=== PATIENT | female | born 1935 | race Two or more races ===

== ENCOUNTER 2020-11-13 12:45 | Inpatient (IN) | payer MEDICARE, OTHER ==
[~2020-11-13] VITALS: Ht 160 cm; Wt 46.3 kg
[~2020-11-13 12:45] MED LIST: ALOG25TA PO; AMLO5TAB4 PO; LEVO750T21 PO; METF-442 PO; WARF-58 PO
--- NOTE | 2020-11-13 12:55 | NUR ---
The patient is [id number] and daughter, from home, c/o severe headache started around 10am. Rates pain 9/10. The patient is alert and oriented x3 with epsidoes of forgetfullness. Denies SOB. Respiration regular and unlabored. Attached to the monitor. Warm blanket provided for comfort. Will continue to monitor the patient.
[2020-11-13] MEDS ORDERED: IV NS 0.9% 1,000 ML BAG IV ONE (13:00)
[2020-11-13 13:15] LABS: BASOPHILS % (AUTO) 0.7 % (0.0-2.0); EOSINOPHILS % (AUTO) 1.9 % (0.0-6.0); HEMATOCRIT 24 % (33-45); HEMOGLOBIN 8.1 g/dL (11.5-14.8); LYMPHOCYTES # (AUTO) 1.1 K/uL (0.8-4.8); LYMPHOCYTES % (AUTO) 18.2 % (20.0-44.0); MEAN CORPUSCULAR HGB CONC 33 g/dl (31.0-36.0); MEAN CORPUSCULAR VOLUME 95 fL (82-100); MONOCYTES # (AUTO) 0.3 K/uL (0.1-1.30); NEUTROPHILS # (AUTO) 4.4 K/uL (1.8-8.9); NEUTROPHILS % (AUTO) 74.2 % (43.0-81.0); PLATELET COUNT (AUTO) 127 K/uL (150-450); RED BLOOD CELL COUNT(AUTO) 2.56 MIL/uL (4.0-5.2)
[2020-11-13 13:25] LABS: ALANINE AMINOTRANSFERASE 16 U/L (12-78); ALBUMIN 2.4 g/dL (3.4-5.0); ALKALINE PHOSPHATASE 68 U/L (46-116); ASPARTATE AMINOTRANSFERASE 15 U/L (15-37); BILIRUBIN,DIRECT 0.1 mg/dL (0.0-0.2); BILIRUBIN,TOTAL 0.3 mg/dL (0.2-1.0); CALCIUM, SERUM 8.1 mg/dL (8.5-10.1); CARBON DIOXIDE 24 mmol/L (21-32); CHLORIDE 111 mmol/L (98-107); CREATININE 2.4 mg/dL (0.6-1.3); GLUCOSE 175 mg/dL (74-106); POTASSIUM 3.8 mmol/L (3.5-5.1); SODIUM SERUM 143 mmol/L (136-145); TOTAL PROTEIN, SERUM 5.3 g/dL (6.4-8.2); UREA NITROGEN, BLOOD 30 mg/dL (7-18)
--- NOTE | 2020-11-13 13:32 | NUR ---
THE PATIENT IS TAKEN TO CT IN STABLE CONDITON.
--- NOTE | 2020-11-13 13:42 | NUR ---
THE PATIENT IS BACK FROM CT IN STABLE CONDITION.
[2020-11-13] MEDS ORDERED: DOCU250C14 PO (14:14)
[2020-11-13] MEDS ORDERED: ROSU40TA23 PO (14:14)
[2020-11-13] MEDS ORDERED: HYDR100T27 PO (14:14)
[2020-11-13] MEDS ORDERED: AMLO-61 PO (14:14)
[2020-11-13] MEDS ORDERED: CLON0.1T PO (14:14)
[2020-11-13] MEDS ORDERED: PANT40TA49 PO (14:14)
[2020-11-13] MEDS ORDERED: CARV6.252 PO (14:14)
--- NOTE | 2020-11-13 14:25 | NUR ---
CODE STROKE IS CALLED
--- NOTE | 2020-11-13 14:28 | NUR ---
THE PATIENT IS TAKEN TO CT
--- NOTE | 2020-11-13 14:47 | NUR ---
THE PATIENT IS BEING ASSESSED BY NEUROLOGIST
--- NOTE | 2020-11-13 15:00 | NUR ---
MOVE SHEET SUBMITTED AND CALLED FOR TELE BED.
--- NOTE | 2020-11-13 15:01 | NUR ---
[facility] CALLED ENVIRONMENTAL PROGRAMS SPECIALIST PAGED.
--- NOTE | 2020-11-13 15:12 | NUR ---
DR SILVA IS MADE AWARE THAT THE PATIENT`S BLOOD PRESSURE IS 197/86, HR 90 AND THE PATIENT C/O HEADACHE 5/10. ALSO, MADE AWARE THAT THE PATIENT DID NOT TAKE HER MORNING BLOOD PRESSURE MEDICATION PER DAUGTER.
[2020-11-13] MEDS ORDERED: ASPIRIN 325 MG TABLET ONE (15:30)
[2020-11-13] MEDS ORDERED: ACETAMINOPHEN ES 500 MG TABLET PO ONE (15:30)
[2020-11-13] MEDS ORDERED: ASPIRIN 325 MG TABLET PO ONE (15:30)
[2020-11-13] MEDS ORDERED: ACETAMINOPHEN ES 500 MG TABLET ONE (15:30)
[2020-11-13] MEDS ORDERED: ACETAMINOPHEN 325 MG TABLET PO PRN (16:00)
[2020-11-13] MEDS: IV NS 0.9% 1,000 ML IV SCH (16:00)
[2020-11-13] MEDS ORDERED: MAGNESIUM HYDROXIDE 30 ML UDC PO PRN (16:00)
[2020-11-13] MEDS ORDERED: ZOLPIDEM TARTRATE 5 MG TABLET PO PRN (16:00)
[2020-11-13] MEDS ORDERED: ONDANSETRON HCL/PF 4 MG/2 ML VIAL IVP PRN (16:00)
[2020-11-13] MEDS ORDERED: MAG HYDROX/AL HYDROX/SIMETH 30 ML UDC PO PRN (16:00)
[2020-11-13] MEDS ORDERED: Z GUARD REMEDY 2 OZ OINT TP PRN (16:00)
--- NOTE | 2020-11-13 16:22 | NUR ---
ROOM ASSIGNMENT: [facility]2 T
[2020-11-13 16:27] LABS: OCCULT BLOOD STOOL NEGATIVE (NEGATIVE)
[2020-11-13] MEDS ORDERED: DOCUSATE SODIUM 250 MG CAPSULE PO PRN (16:30)
--- NOTE | 2020-11-13 16:32 | NUR ---
report given to nurse Matos
--- NOTE | 2020-11-13 16:32 | NUR ---
the patient in stable condition and taken to assigned room per policy
--- NOTE | 2020-11-13 16:37 | NUR ---
TEXTED DR. HANCOCK FOR MRI APPROVAL.
--- NOTE | 2020-11-13 16:41 | NUR ---
MRI APPROVED/ DEPUTY BAILIFFSUMAYA BARTH NOTIFIED
--- NOTE | 2020-11-13 16:44 | NUR ---
RN NOTES PATIENT TRANSFERRED TO UNIT IN ROOM 308-2 VIA FERNANDAREUGENIE, ACCOMPANIED BY 2 ER NURSES.
[2020-11-13] MEDS: BLOOD SUGAR DIAGNOSTIC 1 EACH STRIP IN SCH (17:25)
[2020-11-13] MEDS ORDERED: BLOOD SUGAR DIAGNOSTIC 1 EACH STRIP IN SCH (17:30)
[2020-11-13] MEDS: CARVEDILOL 6.25 MG TABLET PO SCH (17:48)
[2020-11-13] MEDS: ATORVASTATIN 40 MG TABLET PO SCH (18:36)
--- NOTE | 2020-11-13 18:45 | NUR ---
RN NOTES ADMITTED THIS 85YO FEMALE FROM THE ER W/ CC OF WEAKNESS FOLLOWING SWEEPING ACTIVITY AT HOME; ADMITTING DX OF ACUTE CVA PER ER MD. PATIENT WAS SEEN IN BED, RESTING, VERBALLY RESPONSIVE, A/O X2-3, BURUNDIAN-SPEAKING PATIENT ACCOMPANIED BY FAMILY AND LOOM DOFFER AT BEDSIDE. BREATHING EVEN AND UNLABORED ON ROOM AIR. PATIENT ABLE TO RESPOND TO QUESTIONS AND ABLE TO SWALLOW MEDICATION W/ WATER W/O NAUSEA/VOMITING NOR COUGHING. IV LINE NOTED ON LFA #20 W/ IVF OF NS AT 100CC/HR INFUSING WELL. NOTED W/ 2 HEARING AIDS, RIGHT HEARING AID IN PLACE AND LEFT HEARING AID AT BEDSIDE. MILD WEAKNESS NOTED ON R/L UPPER/LOWER EXTREMITIES, PROVIDED ASSISTANCE NEEDED. ABLE TO URINATE VIA BEDPAN. SAFETY MEASURES IN PLACE. CALL LIGHT PLACED W/IN REACH. PATIENT TAKEN TO MRI PROCEDURE BY 2 RAD TECHS VIA (In)Touch Network AT THIS TIME. WILL ENDORSE TO AIR TRANSPORT PROFESSIONALS RN FOR LUIS.
--- NOTE | 2020-11-13 20:00 | NUR ---
CAR CONSTRUCTION SUPERINTENDENT OPENING NOTE RECEIVED PT AWAKE IN BED. A/O X2-3, MOHAWK-SPEAKING. PT IS STABLE ON ROOM AIR. NO SOB OR S/S OF RESPIRATORY DISTRESS NOTED. PT IS ON EXTERNAL FOOD SERVICE SALES REPRESENTATIVES READING CONTROLLED AFIB 81 BPM. PT HAS NO C/O PAIN OR DISCOMFORT AT THIS TIME. IV ACCESS NOTED IN LFA #20, INFUSING NS AT 100 ML/HR, INTACT AND PATENT. SAFETY MEASURES MAINTAINED. BED IN LOWEST LOCKED POSITION, HOB ELEVATED, SIDE RAILS UP X2. CALL LIGHT AND TABLE WITHIN REACH. WILL CONTINUE WITH PLAN OF CARE.
[2020-11-13 20:08] VITALS: BP 158/81
--- NOTE | 2020-11-13 20:15 | NUR ---
MUNIR (OTHER SALES SUPPORT WORKER) [phone].
--- NOTE | 2020-11-13 20:32 | NUR ---
MRA HEAD/NECK NOT DONE, PATIENT UNABLE TO HOLD STILL FOR THE EXAM, PER DIRECTOR OF CATEGORY MANAGEMENT TAB
--- NOTE | 2020-11-13 21:31 | NUR ---
RACECOURSE BARRIER ATTENDANT PAIN PT C/O MILD HEADACHE, RATED 3/10 ON 0-10 PAIN SCALE. PER PT REQUEST, ADMINISTERED TYLENOL 650 MG PO Q6H PRN FOR PAIN. WILL CONTINUE TO MONITOR.
[2020-11-13] MEDS ORDERED: ATORVASTATIN 40 MG TABLET PO SCH (22:00)
--- NOTE | 2020-11-13 23:12 | NUR ---
RECEIVED RESULTS OF MRI BRAIN FROM DR. JERRY FERRER FROM RADIOLOGY. REPORTED 7.6 CM ACUTE STROKE IN RIGHT OCCIPITAL LOBE, RIGHT TEMPORAL, RIGHT THALAMUS, NEGATIVE FOR HEMORRHAGE. RELAYED RESULTS TO MAYELIN ALMEIDA NP. INFORMED HER THAT NEURO CONSULT ORDERED, PT/OT/ST EVALS ORDERED, ASA GIVEN IN ER. NO NEW ORDERS AT THIS TIME.
[2020-11-14 00:06] VITALS: BP 174/82
[2020-11-14] MEDS: BLOOD SUGAR DIAGNOSTIC 1 EACH STRIP IN SCH ×4 (00:24→17:34)
[2020-11-14] MEDS: IV NS 0.9% 1,000 ML IV SCH (02:09)
[2020-11-14 03:58] VITALS: BP 162/67
[2020-11-14 06:04] LABS: BASOPHILS # (AUTO) 0.1 K/uL (0.0-0.2); BASOPHILS % (AUTO) 0.9 % (0.0-2.0); EOSINOPHILS % (AUTO) 2.3 % (0.0-6.0); HEMATOCRIT 24 % (33-45); LYMPHOCYTES # (AUTO) 1.5 K/uL (0.8-4.8); LYMPHOCYTES % (AUTO) 22.2 % (20.0-44.0); MEAN CORPUSCULAR HGB CONC 33 g/dl (31.0-36.0); MEAN CORPUSCULAR VOLUME 96 fL (82-100); MONOCYTES # (AUTO) 0.5 K/uL (0.1-1.30); MONOCYTES % (AUTO) 6.9 % (2.0-12.0); NEUTROPHILS # (AUTO) 4.4 K/uL (1.8-8.9); NEUTROPHILS % (AUTO) 67.7 % (43.0-81.0); PLATELET COUNT (AUTO) 125 K/uL (150-450); RED BLOOD CELL COUNT(AUTO) 2.54 MIL/uL (4.0-5.2); WHITE BLOOD COUNT (AUTO) 6.6 K/uL (4.3-11.0)
[2020-11-14 06:17] LABS: CALCIUM, SERUM 7.9 mg/dL (8.5-10.1); CARBON DIOXIDE 22 mmol/L (21-32); CHLORIDE 113 mmol/L (98-107); CREATININE 2.2 mg/dL (0.6-1.3); GLUCOSE 101 mg/dL (74-106); MAGNESIUM 1.7 mg/dL (1.8-2.4); PHOSPHORUS 3.9 mg/dL (2.5-4.9); POTASSIUM 3.7 mmol/L (3.5-5.1); SODIUM SERUM 144 mmol/L (136-145); UREA NITROGEN, BLOOD 27 mg/dL (7-18)
[2020-11-14 06:32] LABS: CHOLESTEROL 154 mg/dL (<200); FERRITIN 157 ng/mL (8-388); HDL CHOLESTEROL 39 mg/dL (40-60); LDL 86 mg/dL (0-99); TRIGLYCERIDES 150 mg/dL (30-150)
--- NOTE | 2020-11-14 06:40 | NUR ---
EXTRACTOR OPERATOR HELPER CLOSING NOTE PT IS AWAKE IN BED. A/O X2-3, SOLOMON ISLANDER-SPEAKING. PT IS STABLE ON ROOM AIR. NO SOB OR S/S OF RESPIRATORY DISTRESS NOTED. PT IS ON EXTERNAL RECEPTION CLERK READING CONTROLLED AFIB 71 BPM. PT HAS NO C/O PAIN OR DISCOMFORT AT THIS TIME. IV ACCESS IS INTACT, PATENT, AND FLUSHING WELL. ALL NEEDS HAVE BEEN MET. PAIN MANAGEMENT ADMINISTERED PER ORDER. PT REPOSITIONED Q2H AND PRN. SAFETY AND ASPIRATION PRECAUTIONS MAINTAINED AT ALL TIMES. BED IN LOWEST LOCKED POSITION, HOB ELEVATED, SIDE RAILS UP X2. CALL LIGHT AND TABLE WITHIN REACH. WILL ENDORSE TO ONCOMING NURSE FOR LUIS.
[2020-11-14] MEDS: PANTOPRAZOLE 40 MG TABLET.DR PO SCH (07:19)
[2020-11-14 07:20] LABS: IRON, SERUM 25 ug/dl (50-175); TOTAL IRON BINDING CAPACITY 140 ug/dl (250-450)
--- NOTE | 2020-11-14 07:27 | NUR ---
DEBRIDGING MACHINE OPERATOR OPENING NOTES RECEIVED PT AWAKE IN BED IN NO ACUTE SIGNS OF DISTRESS. HOB ELEVATED. GRANDDAUGHTER AT BEDSIDE. A/O X2-3, PALAUAN-SPEAKING, UPPER M[place]ONI WITH HEARING AID IN PLACE TO RIGHT EAR AT THIS TIME, DENIES PAIN OR ANY DISCOMFORTS AT THIS TIME. ON ROOM AIR, BREATHING EVEN AND UNLABORED. ON EXTERNAL PHARMACY CARE COORDINATOR WITH CURRENT READING OF A-FIB CONTROLLED, HR ON THE 80'S, NO C/O CARDIAC DISTRESS VOICED. IV ACCESS LFA #20 INTACT AND PATENT, INFUSING NS AT 100 ML/HR, NO S/S OF INFILTRATION NOTED. SAFETY MEASURES MAINTAINED: BED IN LOWEST LOCKED POSITION, SIDE RAILS UP X2. CALL LIGHT AND BEDSIDE TABLE WITHIN REACH. WILL CONTINUE WITH PLAN OF CARE.
[2020-11-14 08:00] VITALS: BP 156/84
[2020-11-14] MEDS ORDERED: IV NS 0.9% 1,000 ML IV PRN (08:29)
[2020-11-14] MEDS: ASPIRIN EC 81 MG TABLET.DR PO SCH (09:12)
[2020-11-14] MEDS: CARVEDILOL 6.25 MG TABLET PO SCH ×3 (09:13→16:57)
[2020-11-14] MEDS: AMLODIPINE BESYLATE 5 MG TABLET PO SCH (09:13)
[2020-11-14] MEDS: BENAZEPRIL HCL 20 MG TABLET PO SCH (09:14)
[2020-11-14] MEDS: APIXABAN 5 MG TABLET PO SCH ×2 (09:21→16:57)
[2020-11-14] MEDS ORDERED: Magnesium 1GM/D5W 100ML PREMIX 100 ML IV SCH (09:30)
--- NOTE | 2020-11-14 11:25 | NUR ---
RN NOTES PHYSICAL EVALUATION DONE BY PT THIS A.M. PT ON CONTACT GUARD ASSIST WITH FWW. PT BECAME SLIGHTLY DIZZY AND WAS ASSISTED BACK TO BED. NO ACUTE DISTRESS NOTED. PT ASLEEP AT THIS TIME, WITH FAMILY AT BEDSIDE. WILL CONTINUE TO MONITOR.
--- NOTE | 2020-11-14 12:00 | NUR ---
RN NOTES RESULTS OF CAROTID DUPLEX RECEIVED AND PT'S BS 151 MG/DL BEFORE LUNCH. CALLED EXCHANGE AND LEFT MESSAGE. NOTE TELLER SAID DR WHEATLEY WILL CALL BACK.
--- NOTE | 2020-11-14 12:30 | NUR ---
RN NOTES RECEIVED CALL BACK FROM , INFORMED OF BS 151 AND RESULT OF US DUPLEX OF CAROTID, WITH NO NEW ORDERS. CONTINUE TO MONITOR.
[2020-11-14 16:00] VITALS: BP 136/76
[2020-11-14] MEDS: ATORVASTATIN 40 MG TABLET PO SCH (17:01)
--- NOTE | 2020-11-14 18:45 | NUR ---
DISPATCHER RADIOACTIVE WASTE DISPOSAL CLOSING NOTES PT IN BED AWAKE AND RESTING AT SEMI-FOLWER'S POSITION. FAMILY AT BEDSIDE. A/O X2-3, HAITIAN-SPEAKING, CHALKYITSIK WITH HEARING AID IN PLACE TO RIGHT EAR AT THIS TIME. TOLERATING ROOM AIR WITH NO SOB NOTED DURING THE DAY. ON EXTERNAL IMPORT/EXPORT AGENT WITH CURRENT READING OF A-FIB CONTROLLED, HR ON THE 70'S, NO C/O CARDIAC DISTRESS VOICED. IV ACCESS LFA #20 INTACT AND PATENT, NO S/S OF INFILTRATION NOTED. ALL NEEDS AND CARE ATTENDED WELL. SAFETY MEASURES MAINTAINED: BED IN LOWEST LOCKED POSITION, SIDE RAILS UP X2. CALL LIGHT AND BEDSIDE TABLE WITHIN REACH. WILL ENDORSED LUIS TO NIGHT NURSE.
--- NOTE | 2020-11-14 19:30 | NUR ---
TELERN FULLY AWAKE, FAMILY AT BEDSIDE VERY SUPPORTIVE ASSISTING PATIENTS' NEEDS. VERBALLY RESPONSIVE SPEAKING ON THEIR OWN LANGUAGE, APPEARS COMFORTABLE. NO SHORT OF BREATH, PATIENT IS ZUNI. FAMILY TRANSLATING.KEPT COMFORTABL. REMAINS AFIB CONTROLLED ON THE MONITOR.
[2020-11-14 20:00] VITALS: BP 135/60
--- NOTE | 2020-11-14 21:00 | NUR ---
TELERN SEEN AMBULATING AROUND HALLWAY WITH FFW, ACCOMPANIED BY FAMILY. LEFT SIDED WEAKNESS GETTING BETTER PER FAMILY. CONTINENT, BRP VOIDED FREELY. ASSISTED BACK TO BED. PER FAMILY PATIENT FEELS COMFORTABLE. NO COMPLAINTS MADE. STABLE OF THIS TIME.
[2020-11-15] VITALS: BP 145/66
--- NOTE | 2020-11-15 00:07 | NUR ---
TELERN BS 137. NO COVERAGE.
[2020-11-15] MEDS: BLOOD SUGAR DIAGNOSTIC 1 EACH STRIP IN SCH ×4 (00:17→23:52)
--- NOTE | 2020-11-15 02:45 | NUR ---
TELERN AWAKENED, INSISTED TO GO RESTROOM. REFUSED TO USE BSC. ASSISTED TO RESTROOM VOIDED FREELY. BACK TO BED, WAS SHORT OF BREATH ON EXERTION SATURATION WAS 100% on 2 l via nc.. STAYED WITH PATIENT FOR AWHILE. REMAINS A FIB ON THE MONITOR RATE OF 75. NEEDS CLOSER OBSERVATION.
[2020-11-15 04:00] VITALS: BP 158/85
[2020-11-15 06:10] LABS: BASOPHILS % (AUTO) 0.7 % (0.0-2.0); EOSINOPHILS % (AUTO) 2.3 % (0.0-6.0); HEMATOCRIT 26 % (33-45); HEMOGLOBIN 8.4 g/dL (11.5-14.8); LYMPHOCYTES # (AUTO) 1.3 K/uL (0.8-4.8); LYMPHOCYTES % (AUTO) 19.4 % (20.0-44.0); MEAN CORPUSCULAR HGB CONC 33 g/dl (31.0-36.0); MEAN CORPUSCULAR VOLUME 96 fL (82-100); MONOCYTES # (AUTO) 0.4 K/uL (0.1-1.30); NEUTROPHILS # (AUTO) 4.9 K/uL (1.8-8.9); NEUTROPHILS % (AUTO) 71.6 % (43.0-81.0); PLATELET COUNT (AUTO) 129 K/uL (150-450); RED BLOOD CELL COUNT(AUTO) 2.64 MIL/uL (4.0-5.2); WHITE BLOOD COUNT (AUTO) 6.8 K/uL (4.3-11.0)
[2020-11-15 06:11] LABS: CALCIUM, SERUM 8.3 mg/dL (8.5-10.1); CARBON DIOXIDE 26 mmol/L (21-32); CHLORIDE 111 mmol/L (98-107); CREATININE 2.4 mg/dL (0.6-1.3); GLUCOSE 130 mg/dL (74-106); MAGNESIUM 2.1 mg/dL (1.8-2.4); POTASSIUM 3.9 mmol/L (3.5-5.1); SODIUM SERUM 145 mmol/L (136-145); UREA NITROGEN, BLOOD 30 mg/dL (7-18)
--- NOTE | 2020-11-15 06:28 | NUR ---
TELERN SLEEPING OF THIS TIME. APPEARS COMFORTABLE. CONTINUED MONITORING
--- NOTE | 2020-11-15 07:23 | NUR ---
OMAR ROSE AT BEDSIDE. UPDATED. PATIENT ASLEEP OF THIS TIME, EASILY AWAKENED WHEN CALLED AND LIGHT TOUCH. ENDORSED TO INCOMING RN
--- NOTE | 2020-11-15 07:30 | NUR ---
PARACHUTE PACKER OPENING NOTES RECEIVED PT ASLEEP, EASILY AROUSABLE TO STIMULI, A/O X2-3. GRANDDAUGHTER AT BEDSIDE. NO SIGNS OF ACUTE DISTRESS. VIETNAMESE-SPEAKING, SOLOMON WITH HEARING AID IN PLACE TO RIGHT EAR. ON ROOM AIR, BREATHING EVEN AND UNLABORED. ON EXTERNAL SENIOR AUTOMATION ENGINEER WITH CURRENT READING OF A-FIB CONTROLLED, HR 68, NO C/O CARDIAC DISTRESS NOTED. IV ACCESS LFA #20 INTACT AND PATENT, NO S/S OF INFILTRATION NOTED. SAFETY MEASURES MAINTAINED: BED IN LOWEST LOCKED POSITION, SIDE RAILS UP X2. CALL LIGHT AND BEDSIDE TABLE WITHIN REACH. WILL CONTINUE TO MONITOR.
--- NOTE | 2020-11-15 07:30 | NUR ---
LIFE SCIENCES DIRECTOR NOTES PT IN BED, ASLEEP, EASY TO AROUSE, ALERT AND ORIENTED, NO COMPLAINT AT THIS TIME, RESPIRATIONS NORMAL, CALL LIGHT WITHIN REACH, ASSISTED TO BATHROOM NEEDED, ABLE TO AMBULATE WITH ASSISTANCE, FAMILY AT BEDSIDE, NEEDS ANTICIPATED AND ATTENDED.
--- NOTE | 2020-11-15 08:35 | NUR ---
ASSEMBLER CARDS AND ANNOUNCEMENTS NOTES PT SOUNDLY SLEEPING AT THIS TIME. FAMILY/GRANDDAUGHTER REQUESTS NOT TO WAKE HER UP AT THIS TIME.
--- NOTE | 2020-11-15 09:31 | NUR ---
SS consult requested over the weekend for CVA. SS will follow up.
[2020-11-15] MEDS: ASPIRIN EC 81 MG TABLET.DR PO SCH (09:34)
[2020-11-15] MEDS: PANTOPRAZOLE 40 MG TABLET.DR PO SCH (09:34)
[2020-11-15] MEDS: CARVEDILOL 6.25 MG TABLET PO SCH ×3 (09:37→17:49)
[2020-11-15] MEDS: AMLODIPINE BESYLATE 5 MG TABLET PO SCH (09:38)
[2020-11-15] MEDS: BENAZEPRIL HCL 20 MG TABLET PO SCH (09:38)
[2020-11-15] MEDS: APIXABAN 5 MG TABLET PO SCH ×2 (09:41→17:55)
--- NOTE | 2020-11-15 09:55 | NUR ---
RN NOTE SEEN AND EXAMINED BY . MD INFORMED FAMILY AT BEDSIDE THAT PT MAY BE DISCHARGED TODAY PENDING XRAY RESULT. FAMILY VERBALIZED UNDERSTANDING.
--- NOTE | 2020-11-15 13:46 | NUR ---
RN MS NOTES PT IN BED, RESTING, NEUROCHECKS DONE ORDERED, SEEN BY DR. HOWARD, PLAN OF CARE DISCUSSED WITH PT AND FAMILY AT BEDSIDE, VERBALIZED UNDERSTANDING, CALL LIGHT WITHIN REACH, SCHEDULED MEDS GIVEN ORDERED.
[2020-11-15] MEDS: ATORVASTATIN 40 MG TABLET PO SCH (17:49)
--- NOTE | 2020-11-15 18:44 | NUR ---
RN MS NOTES PT IN BED, AWAKE, ALERT AND ORIENTED, FAMILY AT BEDSIDE, ASSISTED TO BATHROOM NEEDED, FALL PRECAUTIONS OBSERVED, SEEN BY DR. HOWARD TODAY, PLAN FOR DISCHARGE TOMORROW, PT AND FAMILY INFORMED, PM MEDS GIVEN, PM CARE PROVIDED.
[2020-11-15 19:26] LABS: BILIRUBIN,URINE NEGATIVE (NEGATIVE); COLOR,URINE YELLOW (YELLOW); LEUKOCYTE ESTERASE ,URINE NEGATIVE (NEGATIVE); NITRITE, URINE NEGATIVE (NEGATIVE); PROTEIN,URINE >=300 mg/dl (NEGATIVE); UGLUCOSE NEGATIVE (NEGATIVE); UROBILINOGEN,URINE 0.2 EU/dL (0.2)
[2020-11-15 19:41] LABS: CREATININE, URINE 62.8 MG/DL (30.0-125.0); URINE TOTAL PROTEIN 536.8 mg/dL (0-11.9)
[2020-11-15 19:52] LABS: BACTERIA,URINE None seen /HPF (None Seen); SQUAMOUS EPITHELIAL CELL,UR Few /HPF (None Seen); URINE AMORPHOUS URATE Few /HPF (None Seen); WBC,URINE 0-2 /HPF (0-3)
--- NOTE | 2020-11-15 20:02 | NUR ---
MS RN OPENING NOTE PATIENT A/OX3; IN BED. TOLERATING ROOM AIR WELL WITH NO SOB. NO S/SX OF PAIN AT THIS TIME. L HAND #20G; PATENT AND INTACT. FAMILY AT BED SIDE. SAFETY MEASURES IN PLACE: BED TO LOWEST LOCKED POSITION, SIDE RAILS UPX2, CALL LIGHT WITHIN EASY REACH, BED ALARM ON. PATIENT IN STABLE CONDITION & WILL CONTINUE PLAN OF CARE.
[2020-11-15 20:20] VITALS: BP 123/60
[2020-11-16] MEDS: BLOOD SUGAR DIAGNOSTIC 1 EACH STRIP IN SCH ×4 (05:33→22:50)
[2020-11-16 06:33] LABS: BASOPHILS % (AUTO) 0.4 % (0.0-2.0); EOSINOPHILS % (AUTO) 2.4 % (0.0-6.0); HEMATOCRIT 24 % (33-45); HEMOGLOBIN 7.8 g/dL (11.5-14.8); LYMPHOCYTES # (AUTO) 1.8 K/uL (0.8-4.8); LYMPHOCYTES % (AUTO) 28.1 % (20.0-44.0); MEAN CORPUSCULAR HGB CONC 33 g/dl (31.0-36.0); MEAN CORPUSCULAR VOLUME 97 fL (82-100); MONOCYTES # (AUTO) 0.4 K/uL (0.1-1.30); MONOCYTES % (AUTO) 6.2 % (2.0-12.0); NEUTROPHILS % (AUTO) 62.9 % (43.0-81.0); PLATELET COUNT (AUTO) 129 K/uL (150-450); RED BLOOD CELL COUNT(AUTO) 2.49 MIL/uL (4.0-5.2); WHITE BLOOD COUNT (AUTO) 6.4 K/uL (4.3-11.0)
--- NOTE | 2020-11-16 06:49 | NUR ---
MS RN CLOSING NOTE PATIENT A/OX3; IN BED. TOLERATING ROOM AIR WELL WITH NO SOB. NO S/SX OF PAIN AT THIS TIME. L HAND #20G; PATENT AND INTACT. SAFETY MEASURES IN PLACE: BED TO LOWEST LOCKED POSITION, SIDE RAILS UPX2, CALL LIGHT WITHIN EASY REACH, BED ALARM ON. PATIENT IN STABLE CONDITION & WILL ENDORSE PLAN OF CARE TO ONCOMING MORNING RN.
[2020-11-16 07:18] LABS: CALCIUM, SERUM 8.1 mg/dL (8.5-10.1); CARBON DIOXIDE 21 mmol/L (21-32); CHLORIDE 114 mmol/L (98-107); CREATININE 2.4 mg/dL (0.6-1.3); GLUCOSE 118 mg/dL (74-106); MAGNESIUM 2.2 mg/dL (1.8-2.4); PHOSPHORUS 3.7 mg/dL (2.5-4.9); POTASSIUM 3.7 mmol/L (3.5-5.1); SODIUM SERUM 145 mmol/L (136-145); UREA NITROGEN, BLOOD 32 mg/dL (7-18)
--- NOTE | 2020-11-16 07:30 | NUR ---
MS RN OPENING NOTE RECEIVED PT ASLEEP IN BED, EASILY AROUSABLE TO STIMULI, A/O X3. DENIES ANY PAIN OR DISCOMFORT. RESPIRATIONS EVEN/UNLABORED, ON ROOM AIR. NOTED IV ACCESS ON L-HAND #20, INTACT, PATENT, FLUSHES WELL. SAFETY MEASURES IN PLACE: BED IN LOWEST LOCKED POSITION, SIDERAILS UPX2, CALL LIGHT WITHIN EASY REACH, BED ALARM ON. WILL CONTINUE TO MONITOR.
[2020-11-16] MEDS: AMLODIPINE BESYLATE 5 MG TABLET PO SCH (09:20)
[2020-11-16] MEDS: CARVEDILOL 6.25 MG TABLET PO SCH ×3 (09:20→17:16)
[2020-11-16] MEDS: ASPIRIN EC 81 MG TABLET.DR PO SCH (09:20)
[2020-11-16] MEDS: BENAZEPRIL HCL 20 MG TABLET PO SCH (09:21)
[2020-11-16] MEDS: APIXABAN 2.5 MG TABLET PO SCH ×2 (09:28→17:15)
--- NOTE | 2020-11-16 10:00 | NUR ---
WOUND CARE CONSULT: PT PRESENTS WITH DRY SCRATCH TO LEFT EAR, PRESENT ON ADMISSION. NO ERYTHEMA, TENDERNESS OR DRAINAGE NOTED. WILL SEE PRN.
[2020-11-16] MEDS: POTASSIUM CHLORIDE 20 MEQ TAB.PRT.SR PO SCH ×2 (10:23→11:37)
[2020-11-16] MEDS: FUROSEMIDE 100 MG/10 ML VIAL IV SCH ×3 (10:27→18:00)
--- NOTE | 2020-11-16 11:45 | NUR ---
SEEN AND EXAMINED BY MAYELIN ALMEIDA NP.
--- NOTE | 2020-11-16 11:55 | NUR ---
Laborer Pipeline consult: financial services education consultant consult requested for stroke. Patient is an 85-year-old, female. SW met with patient at her bedside in the med-surg unit. Patients family were at the bedside. Patient presented calm and was seated upright. Patient was alert and oriented x3, name, place, time. Per chart, patient was brought into the hospital by ambulance on 11/13/20 for stroke. Patient stated that she was previously living alone but had a senior brand manager and will be going to live with her [id number], Lenny, , at the time of discharge ([address] [place] [address]). SW asked patient if she is ambulatory and patient reported that she currently uses a walker but was previously able to ambulate without assistance. Patient reported she can cook and clean on her own but requires assistance from her senior brand manager to take showers. Patient reported that she was very active. Patient sees her PCP regularly and last saw her PCP around 2 weeks ago. SW asked the patient if she currently has a source of income and patient stated she receives SSI. SW asked the patient if she has a history of substance use and patient reported no history. Patient reported no history of mental illness or suicidal or homicidal ideation. SW administered PHQ-9 assessment with the patient. Patient scored 1 on the assessment as she has been feeling somewhat down after her hospitalization. SW offered the patient stroke resources and discussed the resources with the patients family at the bedside. Patient accepted the resources and thanked SW. SW offered the patient a senior resource packet and senior booklet, New Lifestyles: Guide to [facility] and Care. Patient accepted the resources. Patient and patients family stated they will use the resources when needed and thanked GISELE. SW discussed discharge plans with the patient and patients family. Patient plans to be discharged with her [id number] and will stay at her residence. PLAN: Patient plans to live with her [id number] at the time of discharge. No further SS intervention at this time, however SW will remain available as needed. RESOURCES: ABUSE PREVENTION: ELDER ABUSE HOTLINE (03/12) ADULT PROTECTIVE SERVICES HOTLINE LONG-TERM CARE [facility] AREA ON AGING (HOTLINE) ADULT DAY HEALTH CARE CARE CENTERS: Private pay or Medi-vel funded adult day care [facility] Health Care [facility] , [facility] , [facility] , [facility] Adult Day Health Care , [facility] Adult Day Health Care , [facility] , [place] ONE Generation [place] , [facility] , [place] ALZHEIMERS DISEASE/DEMENTIA: Alzheimers Association Helpline [facility] www.alz.org/[facility] Department of Aging www.lacity.org Family Caregiver [place] www.caregiver.org [place] Caregiver Resources Center/Family Support www.[facility].org CANCER RESOURCES: [place] Cancer Society www.cancer.org Cancer Support Community www.CancerSupportVvsb.org: CancerCare www.cancercare.org [facility] Cancer Support Center www.[facility].org COMMUNITY HEALTH ASSOCIATIONS: AARP www.aarp.org ALS Association (ask for Laura) www.als.org [place] Diabetes Association www.diabetes.org [place] Heart Association www.heart.org [place] Lung Association www.lungusa.org [place] Parkinson Disease Association www.apdaparkinson.org Togolese Peever , www.redcross.org Arthritis Foundation www.arthritis.org Crohns & Colitis Foundation of [place]olese www.ccfa.org/chapters/joseph National Multiple Sclerosis Society www.nationalmssociety.org Myasthenia Gravis Foundation www.myasthenia-ca.org National Stroke Association www.stroke.org CONSERVATORSHIP & GUARDIANSHIP: AARP Silvia Arreola Legal Services Center for Health Care Rights Eldercare Information and Referral Operation Shift Supervisor [facility]: [facility] Referral Service [facility] Legal Services Office of the Public Guardian [place] EYESIGHT DISORDER RESOURCES: [place] Macular Degeneration Foundation [facility] www.[facility] hospitalinstitperry.org GRIEF AND BEREAVEMENT RESOURCES: The [place] , [facility] THE HOPE Connection , [facility]re[facility]ment Center , [place] HEARING DISORDER RESOURCES: [place] Telephone Access Program Deaf and Disabled Telecommunications Program www.ddtp.cpu.ca.gov HearRx Hearing Centers ([place]) Better Hearing Systems , [place] GLAD ([facility] Agency on Deafness) V/ TTY; [place] Singer , [facility] Hearing [facility] -low income hearing aid assistance www.Red Zebrahearingfoundation.org [place] Hearing Care [place] HELP AT HOME CAREGIVER SUPPORT: In Home Support Services (Must have Medi-Vel to be eligible) *Ask for a list of agencies that provide services to assist with care in the home. Local Senior Centers also have listings of care providers. HOME SAFETY MODIFICATIONS AND EQUIPMENT: Senior centers have additional referrals. PR Chainalytics and TouchTunes Interactive Networks Investment Dept. Handyworker Program (low income) or Visit http://hcidla.[facility].org/ofu-oavmjo-kl for more information National Seating and Mobility and/or ; Forever Active www.foreverGenomeQuest.Klocwork Stay Home Safe www.Stayhomesafe.com LIFE ALERT RESPONSE SYSTEM: Sportsyline Services 101-093-0241 www. GameCrush Life Alert 570-972-2095 www.Sweet Surrender Dessert & Cocktail Lounge.Klocwork Life Station 087-974-7041 www.Cogheadation.Klocwork Safe Return 692-217-8927 www.alz.or/safereturn Cell Phones for Seniors www.Conversion Innovations MEALS AND FOOD PROGRAMS: [place] Meals on Wheels 596-201-4231 [place] Meals on Wheels [phone] [facility] [phone] [place] to the Homebound [phone] [place] to the Homebound 772-785-6369 [facility] to the Homebound [phone] [facility] to the Homebound [phone] Matt Fair [phone] [facility] [phone] ONE Generation [phone] [facility] [phone] Emily [facility] [phone] Meals on Wheels [phone] For all ages: $6.85/ meal w side. Delivered M-F from 10 am-1pm. Application and payment is done over the phone. Frozen meals available for weekends. Emergency Food [facility] [phone] [facility] Laborer Pipeline [phone] [facility] [phone] Jenni Aleman Outreach- Brown bag lunches [phone] [facility] [phone] MEAL/GROCERY DELIVERY PROGRAMS: Yajaira Murphy Gourmet Meals [phone]- [facility] [phone]- [facility] Magic Kitchen [phone] Moms Meals [phone] (ask Arnold for Discount Select grocery stores may provide delivery. MEDICAL INSURANCE SUPPORT SERVICES: Center for Health Care Rights [phone] Health Insurance Counseling/Advocacy Programs (HICAP)-Must have Medicare. Offers counseling for Medi-Vel eligibility 069-523-2749 Department of Public Laborer Pipeline 778-763-1062 www.[facility].ca.gov Medicare 659-434-7844 www.socialsecurity.org Social Security [phone] SENIOR ACTIVITY PROGRAMS: *Contact a local senior center, adult school, recreation facility or community college for education, fitness, recreation, and social programs. Aquatic Therapy and Adapted Exercise programs through [facility] [phone] Encore at [facility] [phone] www.[facility]/encore U- Senior Friends [phone] [place] Senior Programs [phone] www.oasisnet.org Suddenly 65 www.xeewfnni05.com SENIOR CENTERS: [facility] [phone] [facility] [phone] [facility] [phone] [facility] [phone] [facility] [phone] [facility] [phone] SherrillRUST [phone] [facility] [phone] One Generation, [facility] [phone] [facility] [phone] [facility] [phone] [facility] [phone] [facility] [phone] TRANSPORTATION: Local [facility] Centers may have applications for transportation programs and additional resources. ACCESS Services [phone] Transportation for seniors and disabled persons 7 days a week requiring 254 hr. advance reservation. Must apply and register for program zoe eligible. FusionOne 607-710-6825 or [phone] Transportation for seniors and persons with ADA card/metro disabled card in the [facility]. M-F only. Must register for services. ONE GENERATION [phone] Serves 65 years + in conjunction with Orb Networkse program. Must be registered with both programs. A to B Transport [phone] Provides wheelchair/gurney van service. Adult Medical Transport [phone] Accepts Medi-vel with prior authorization. Care Van [phone] Provides wheelchair Transport. [facility] Wide Transportation [phone] Provides gurney service [facility] [phone] Gurney Transport. [facility] Transportation [phone] wheelchair & gurney transport [facility] Transportation [phone] wheelchair & gurney transport [place] Non-Emergency Transport [phone] wheelchair & gurney transport [facility] [phone] Short Term Transportation primarily for adults with disabilities on social security income. Nominal fee may apply and a reservation is required. [facility] Cab [phone] or [phone] [facility] [phone] [place] [address] Referral Services [phone] For additional programs & services
--- NOTE | 2020-11-16 14:00 | NUR ---
BP 112/52. LASIX NOT GIVEN AT THIS TIME.
[2020-11-16 16:00] VITALS: BP 147/69
--- NOTE | 2020-11-16 16:49 | NUR ---
RN NOTE PT STILL OUT FOR MRI AT THIS TIME.
[2020-11-16] MEDS: ATORVASTATIN 40 MG TABLET PO SCH (17:23)
--- NOTE | 2020-11-16 18:00 | NUR ---
RN NOTE PT DUE FOR LASIX 80MG; CHECKED BP 129/70 AT THIS TIME, ALSO HAD TAKEN CARVEDILOL 6.25MG ONE HOUR AGO. REPORTED TO MAYELIN ALMEIDA NP WITH ORDER TO HOLD IT AT THIS TIME DUE TO DECREASED BP. FAMILY AWARE.
--- NOTE | 2020-11-16 19:25 | NUR ---
MS RN CLOSING NOTE PT AWAKE IN BED, A/O X3, DENIES ANY PAIN OR DISCOMFORT. GRANDDAUGHTER AT BEDSIDE. PM MEDS GIVEN ORDERED. ASSISTED TO BR NEEDED. PT ATE DINNER WITH ASSIST BY SON. TOLERATING WELL. PT IN NO ACUTE DISTRESS. ALL NEEDS ATTENDED TO. SAFETY MEASURES MAINTAINED. ENDORSED TO NEXT SHIFT NURSE.
[2020-11-16 20:00] VITALS: BP 139/69
--- NOTE | 2020-11-17 05:00 | NUR ---
patient voided. void discarded. 24 hour urine collection documented start time. next voids to be collected for specimen for 24 hours.
[2020-11-17 05:58] LABS: BASOPHILS % (AUTO) 0.4 % (0.0-2.0); EOSINOPHILS % (AUTO) 2.4 % (0.0-6.0); HEMATOCRIT 25 % (33-45); LYMPHOCYTES # (AUTO) 1.8 K/uL (0.8-4.8); LYMPHOCYTES % (AUTO) 28.8 % (20.0-44.0); MEAN CORPUSCULAR HGB CONC 32 g/dl (31.0-36.0); MEAN CORPUSCULAR VOLUME 97 fL (82-100); MONOCYTES # (AUTO) 0.4 K/uL (0.1-1.30); NEUTROPHILS # (AUTO) 3.9 K/uL (1.8-8.9); NEUTROPHILS % (AUTO) 62.4 % (43.0-81.0); PLATELET COUNT (AUTO) 128 K/uL (150-450); RED BLOOD CELL COUNT(AUTO) 2.55 MIL/uL (4.0-5.2); WHITE BLOOD COUNT (AUTO) 6.3 K/uL (4.3-11.0)
[2020-11-17 06:16] LABS: CALCIUM, SERUM 8.2 mg/dL (8.5-10.1); CARBON DIOXIDE 22 mmol/L (21-32); CHLORIDE 110 mmol/L (98-107); CREATININE 2.5 mg/dL (0.6-1.3); GLUCOSE 128 mg/dL (74-106); POTASSIUM 4.3 mmol/L (3.5-5.1); SODIUM SERUM 141 mmol/L (136-145); UREA NITROGEN, BLOOD 34 mg/dL (7-18)
[2020-11-17 07:06] LABS: *SPE A/G RATIO 1.1 (0.7-1.7); *SPE ALBUMIN 2.4 g/dL (2.9-4.4); *SPE ALPHA-1-GLOBULIN 0.2 g/dL (0.0-0.4); *SPE ALPHA-2-GLOBULIN 0.9 g/dL (0.4-1.0); *SPE BETA GLOBULIN 0.7 g/dL (0.7-1.3); *SPE GLOBULIN, TOTAL 2.2 g/dL (2.2-3.9); *SPE M-SPIKE Not Observed g/dL (Not Observed); *SPEGAMMA GLOBULIN 0.5 g/dL (0.4-1.8)
--- NOTE | 2020-11-17 07:15 | NUR ---
RN OPENING NOTE RECEIVED PATIENT IN BED. A/O X3. ON ROOM AIR, TOLERATING WELL. NO SOB NOTED. IN NO APPARENT DISTRESS. DENIES ANY PAIN OR DISCOMFORT AT THIS TIME. IV ACCESS ON L HAND #20 G, INTACT AND PATENT. SAFETY MEASURES MAINTAINED. BED IN LOWEST POSITION, BRAKES LOCKED. SIDE RAILS UP X2. CALL LIGHT WITHIN REACH. WILL CONTINUE PLAN OF CARE.
[2020-11-17] MEDS: BLOOD SUGAR DIAGNOSTIC 1 EACH STRIP IN SCH ×4 (07:25→22:39)
[2020-11-17 08:00] VITALS: BP 133/53
[2020-11-17 08:07] LABS: *ANA ANTI-CENTROMERE B AB <0.2 AI (0.0-0.9); *ANA ANTI-DNA(DS) AB, QN <1 IU/mL (0-9); *ANA ANTI-JO-1 <0.2 AI (0.0-0.9); *ANA ANTICHROMATIN ANTIBODY <0.2 AI (0.0-0.9); *ANA RNP ANTIBODIES <0.2 AI (0.0-0.9); *ANA SJOGREN'S ANTI-SS-A <0.2 AI (0.0-0.9); *ANA SJOGREN'S ANTI-SS-B <0.2 AI (0.0-0.9); *ANAANTI-SCLERODERMA-70 AB <0.2 AI (0.0-0.9); *ANASMITH AB <0.2 AI (0.0-0.9); IMMUNOGLOBULIN A, SERUM 141 mg/dL (64-422); IMMUNOGLOBULIN G, SERUM 533 mg/dL (586-1602); IMMUNOGLOBULIN M, SERUM 43 mg/dL (26-217)
[2020-11-17] MEDS ORDERED: FUROSEMIDE 80 MG TABLET PO SCH (09:00)
[2020-11-17] MEDS: BENAZEPRIL HCL 20 MG TABLET PO SCH (09:30)
[2020-11-17] MEDS: CARVEDILOL 6.25 MG TABLET PO SCH ×3 (09:30→16:21)
[2020-11-17] MEDS: AMLODIPINE BESYLATE 5 MG TABLET PO SCH (09:30)
[2020-11-17] MEDS: ASPIRIN EC 81 MG TABLET.DR PO SCH (09:31)
[2020-11-17] MEDS: APIXABAN 2.5 MG TABLET PO SCH ×2 (09:32→16:20)
[2020-11-17 16:00] VITALS: BP 135/58
[2020-11-17] MEDS: ATORVASTATIN 40 MG TABLET PO SCH (17:11)
--- NOTE | 2020-11-17 18:16 | NUR ---
RN CLOSING NOTE PATIENT SITTING IN A CHAIR. A/O X3. AMBULATORY WITH WALKER. ON ROOM AIR, TOLERATING WELL. NO SOB NOTED. NO S/S OF RESPIRATORY DISTRESS. STILL DENIES ANY PAIN OR DISCOMFORT AT THIS TIME. IV ACCESS ON L HAND #20 G, INTACT AND PATENT. PT IS ON 24 HOUR URINE COLLECTION. ALL DUE MEDS GIVEN ORDERED. ALL NEEDS HAVE BEEN MET AND ATTENDED. SAFETY MEASURES MAINTAINED. BED IN LOWEST POSITION, BRAKES LOCKED. SIDE RAILS UP X2. CALL LIGHT WITHIN REACH. WILL ENDORSE CONTINUITY OF CARE TO ONCOMING SHIFT.
--- NOTE | 2020-11-17 19:15 | NUR ---
RN OPENING NOTE PATIENT IN BED WITH HOB ELEVATED BEING FED BY FAMILY AT BEDSIDE. PATIENT IS CURRENTLY A/O X 3, ABLE TO FOLLOW COMMANDS AND NO CHANGES IN HER EXTREMITIES. PATIENT IS PRIMARILY ETHIOPIAN SPEAKING. PATIENT IS CURRENTLY ON RA, TOLERATING WITH 97% O2 SATURATION. JULIO SKY ENDORSED 24 HR URINE COLLECTION FOR PATIENT THAT WILL END AT 0500. SAFETY MEASURES IN PLACE: BED LOCKED IN LOWEST POSITION, CALL LIGHT WITHIN REACH, SIDE RAILS UP. WILL MONITOR PATIENT CLOSELY AND CONTINUE NEURO CHECKS Q4HR.
[2020-11-17 20:00] VITALS: BP 118/59
[2020-11-18 06:28] LABS: BASOPHILS # (AUTO) 0.1 K/uL (0.0-0.2); BASOPHILS % (AUTO) 0.8 % (0.0-2.0); EOSINOPHILS % (AUTO) 2.3 % (0.0-6.0); HEMATOCRIT 25 % (33-45); HEMOGLOBIN 8.3 g/dL (11.5-14.8); LYMPHOCYTES % (AUTO) 28.7 % (20.0-44.0); MEAN CORPUSCULAR HGB CONC 33 g/dl (31.0-36.0); MEAN CORPUSCULAR VOLUME 97 fL (82-100); MONOCYTES # (AUTO) 0.4 K/uL (0.1-1.30); MONOCYTES % (AUTO) 6.3 % (2.0-12.0); NEUTROPHILS # (AUTO) 4.3 K/uL (1.8-8.9); NEUTROPHILS % (AUTO) 61.9 % (43.0-81.0); PLATELET COUNT (AUTO) 126 K/uL (150-450); RED BLOOD CELL COUNT(AUTO) 2.62 MIL/uL (4.0-5.2); WHITE BLOOD COUNT (AUTO) 6.9 K/uL (4.3-11.0)
[2020-11-18] MEDS: BLOOD SUGAR DIAGNOSTIC 1 EACH STRIP IN SCH ×2 (06:39→11:20)
[2020-11-18 06:55] LABS: CALCIUM, SERUM 8.4 mg/dL (8.5-10.1); CARBON DIOXIDE 23 mmol/L (21-32); CHLORIDE 111 mmol/L (98-107); CREATININE 2.6 mg/dL (0.6-1.3); GLUCOSE 132 mg/dL (74-106); POTASSIUM 4.7 mmol/L (3.5-5.1); SODIUM SERUM 143 mmol/L (136-145); UREA NITROGEN, BLOOD 39 mg/dL (7-18)
--- NOTE | 2020-11-18 07:03 | NUR ---
RN CLOSING NOTE PATIENT IN BED, EYES CLOSED. EASILY AROUSED. NO SIGNIFICANT CHANGES IN HER NEUROLOGICAL STATUS, BREATHING EVEN AND UNLABORED. PATIENT NOT IN ANY APPARENT DISTRESS. 24 HOUR URINE COLLECTED AND DROPPED OF TO LAB. PATIENT IS ABLE TO MAKE NEEDS KNOWN. ALL NEEDS MET AND ATTENDED, ALL ORDERS CARRIED OUT. WILL ENDORSE TO DAY SHIFT NURSE FOR LUIS.
--- NOTE | 2020-11-18 07:15 | NUR ---
RN NOTES PATIENT SEEN IN BED RESTING, EYES CLOSED, ABLE TO BE AWAKENED. BREATHING EVEN AND UNLABORED, TOLERATING ROOM AIR. NOT IN ACUTE DISTRESS. SAFETY MEASURES IN PLACE. WILL CONTINUE TO MONITOR.
[2020-11-18 08:37] LABS: URINE TOTAL PROTEIN 328.4 mg/dL (0-11.9)
[2020-11-18 08:50] VITALS: BP 150/70
[2020-11-18] MEDS ORDERED: FUROSEMIDE 40 MG TABLET PO SCH (09:00)
[2020-11-18] MEDS: ASPIRIN EC 81 MG TABLET.DR PO SCH (09:16)
[2020-11-18] MEDS: CARVEDILOL 6.25 MG TABLET PO SCH ×2 (09:16→12:12)
[2020-11-18] MEDS: AMLODIPINE BESYLATE 5 MG TABLET PO SCH (09:17)
[2020-11-18] MEDS: BENAZEPRIL HCL 20 MG TABLET PO SCH (09:17)
[2020-11-18] MEDS: APIXABAN 2.5 MG TABLET PO SCH (09:17)
--- NOTE | 2020-11-18 09:45 | NUR ---
RN NOTES GRANDDTR AT BEDSIDE W/ PATIENT; ABLE TO TRANSLATE FOR STAFF FOR MEDICATION ADMINISTRATION. SEEN ASSISTING PATIENT DURING AMBULATION.
[2020-11-18] MEDS ORDERED: APIX2.5T PO (10:57)
[2020-11-18] MEDS ORDERED: FURO40TA5 PO (10:57)
[2020-11-18] MEDS ORDERED: ASPI-1420 PO (10:57)
[2020-11-18] MEDS ORDERED: LINA5TAB PO (11:01)
--- NOTE | 2020-11-18 12:00 | NUR ---
RN NOTES PATIENT WAS SEEN BY MAYELIN ALMEIDA NP, W/ ORDER FOR DISCHARGE TO HOME W/ HOME HEALTH.
[2020-11-18 12:12] VITALS: BP 143/72
--- NOTE | 2020-11-18 15:10 | NUR ---
RN NOTES RECEIVED CALL FROM SALLY CUELLAR, AND WAS INFORMED THAT PATIENT WILL HAVE HOME HEALTH F/U W/ ASSISTED HOME HEALTH ([phone]) FOR PT/RN SAFETY; PATIENT'S SON AND DTR-IN-LAW AT BEDSIDE AND MADE AWARE.
--- NOTE | 2020-11-18 15:55 | NUR ---
RN NOTES PATIENT DISCHARGED TO HOME TODAY W/ HOME HEALTH. DISCHARGE INSTRUCTIONS AND EDUCATION PROVIDED TO PATIENT AND PATIENT'S SON/DTR-IN-LAW; VERBALIZED UNDERSTANDING OF MEDICATIONS AND F/U W/ ANATOMIC PATHOLOGY ASSISTANT. DISCHARGE FORM AND BELONGINGS LIST FORM SIGNED BY DTR-IN-LAW. ALL BELONGINGS ACCOUNTED FOR. NAME ARMBAND AND IV LINE REMOVED. ASSISTED BY AMBER MON, VIA WHEELCHAIR TO THE LOBBY AND PICKED UP VIA PRIVATE CAR. CHARGE NURSE AND MD AWARE OF DISCHARGE.
== END 2020-11-18 15:50 | disposition home health service (06) | DRG 64 ==
LOC: ER 12:52 → TELE 16:23 → MED 11-15 12:09
PROVIDERS: ADMIT Family Medicine; ATTEND Nurse Practitioner Acute Care
DX: I63.431 Cerebral infarction due to embolism of right posterior cerebral artery (principal); N17.0 Acute kidney failure with tubular necrosis; E43 Unspecified severe protein-calorie malnutrition; I50.33 Acute on chronic diastolic (congestive) heart failure; D68.59 Other primary thrombophilia; I13.0 Hypertensive heart and chronic kidney disease with heart failure and stage 1 through stage 4 chronic kidney disease, or unspecified chronic kidney disease; Z68.1 Body mass index [BMI] 19.9 or less, adult; E11.22 Type 2 diabetes mellitus with diabetic chronic kidney disease; E11.42 Type 2 diabetes mellitus with diabetic polyneuropathy; E88.09 Other disorders of plasma-protein metabolism, not elsewhere classified; E11.36 Type 2 diabetes mellitus with diabetic cataract; I48.91 Unspecified atrial fibrillation; D63.8 Anemia in other chronic diseases classified elsewhere; N18.9 Chronic kidney disease, unspecified; Z20.822 Contact with and (suspected) exposure to COVID-19; E83.51 Hypocalcemia; E83.42 Hypomagnesemia; K21.9 Gastro-esophageal reflux disease without esophagitis; Z87.440 Personal history of urinary (tract) infections; Z83.3 Family history of diabetes mellitus; Z82.49 Family history of ischemic heart disease and other diseases of the circulatory system; Z87.891 Personal history of nicotine dependence; Z90.710 Acquired absence of both cervix and uterus; F03.90 Unspecified dementia, unspecified severity, without behavioral disturbance, psychotic disturbance, mood disturbance, and anxiety; M19.90 Unspecified osteoarthritis, unspecified site; E78.5 Hyperlipidemia, unspecified; F32.9 Major depressive disorder, single episode, unspecified; F41.9 Anxiety disorder, unspecified; M54.30 Sciatica, unspecified side; M81.0 Age-related osteoporosis without current pathological fracture; E53.8 Deficiency of other specified B group vitamins; R42 Dizziness and giddiness; F39 Unspecified mood [affective] disorder; N13.9 Obstructive and reflux uropathy, unspecified; R29.700 NIHSS score 0; R40.2142 Coma scale, eyes open, spontaneous, at arrival to emergency department; R40.2362 Coma scale, best motor response, obeys commands, at arrival to emergency department; R40.2252 Coma scale, best verbal response, oriented, at arrival to emergency department
CPT/HCPCS: 36415; 70450-TC; 70544-TC; 70547-TC; 70551-TC; 71045-TC; 80048-TC; 80061-TC; 80076-TC; 81001; 82272-TC; 82570-TC; 82728-TC; 82784; 82962-TC; 83540-TC; 83735-TC; 83880; 83970; 84100-TC; 84155; 84155-TC; 84165; 84300-TC; 84484-TC; 85025-TC; 85385-TC; 85730-TC; 86225; 86235; 86334; 87081-TC; 92526; 92611-TC; 93307-TC; 93880-TC; 97112-TC; 97116-TC; 97530-TC; C9803; G0378; J1940; J3475; J7030; J7050